=== PATIENT | female | born 2000 | race Caucasian/White ===

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

== ENCOUNTER → 2023-08-09 16:25 | Outpatient (CLI) | payer OTHER, SELFPAY ==
[2023-08-11 11:13] LABS: Progesterone 20.1 ng/mL (.)
== END ==
PROVIDERS: PCP Obstetrics & Gynecology; Visit Provider Obstetrics & Gynecology
DX: N92.6 Irregular menstruation, unspecified (principal); Z32.00 Encounter for pregnancy test, result unknown
CPT/HCPCS: 36415; 84144; 84702

== ENCOUNTER → 2023-08-14 12:02 | Outpatient (CLI) | payer OTHER, SELFPAY ==
[2023-08-14 12:51] LABS: Basophils % 0.2 % (0.1-2.0); Eosinophils # 0.1 K/mm3 (0.0-0.4); Eosinophils % 0.7 % (0.1-12.0); Hematocrit 37.5 % (37.0-47.0); Lymphocytes # 1.4 K/mm3 (0.7-4.5); Lymphocytes % 12.5 % (10-50); Mean Corpuscular HGB Conc 34.5 g/dL (31.8-35.4); Mean Corpuscular Hemoglobin 30.7 pg (27.0-31.2); Mean Platelet Volume 8.5 fl (7.4-10.4); Monocytes # 0.4 K/mm3 (0.1-1.0); Neutrophils # 9.2 K/mm3 (1.8-7.8); Neutrophils % 82.6 % (37.0-80.0); Platelet Count 209 K/mm3 (142-424); Red Blood Count 4.22 M/mm3 (4.20-5.40); Red Cell Distribution Width 13.1 % (11.5-17.5); White Blood Count 11.1 K/mm3 (4.8-10.8)
[2023-08-15 11:18] LABS: Rapid Plasma Reagin Ab Titer Non Reactive titer (NonRea<1:1)
[2023-08-18 21:36] LABS: HIV Screen 4th Generation wRfx Non Reactive; Hepatitis B Surface Antigen Negative; Hepatitis C Antibody Non Reactive
== END ==
PROVIDERS: Visit Provider Obstetrics & Gynecology
DX: Z34.91 Encounter for supervision of normal pregnancy, unspecified, first trimester (principal); Z3A.08 8 weeks gestation of pregnancy
CPT/HCPCS: 36415; 85025; 86593; 86703; 86762; 86850; 87086; 87340; 87380; G0432

== ENCOUNTER → 2023-09-12 16:42 | Outpatient (CLI) | payer OTHER, SELFPAY ==
[2023-09-12 16:39] LABS: Hemoglobin A1C 4.6 % (4.0-6.0)
== END ==
LOC: LAB.DROPOF 16:43
PROVIDERS: PCP Obstetrics & Gynecology; Visit Provider Nurse Practitioner Psychiatric/Mental Health
DX: Z79.899 Other long term (current) drug therapy (principal)
CPT/HCPCS: 83036

== ENCOUNTER 2023-09-26 10:36 | Outpatient (CLI) | payer OTHER, SELFPAY ==
[2023-09-26 10:58] LABS: Basophils % 0.2 % (0.1-2.0); Eosinophils # 0.1 K/mm3 (0.0-0.4); Eosinophils % 1.1 % (0.1-12.0); Hematocrit 37.5 % (37.0-47.0); Lymphocytes # 1.5 K/mm3 (0.7-4.5); Lymphocytes % 13.5 % (10-50); Mean Corpuscular HGB Conc 34.5 g/dL (31.8-35.4); Mean Corpuscular Hemoglobin 30.7 pg (27.0-31.2); Mean Corpuscular Volume 88.8 fl (81-99); Mean Platelet Volume 8.7 fl (7.4-10.4); Monocytes # 0.5 K/mm3 (0.1-1.0); Monocytes % 4.3 % (1.7-9.3); Neutrophils # 8.8 K/mm3 (1.8-7.8); Neutrophils % 80.9 % (37.0-80.0); Platelet Count 229 K/mm3 (142-424); Red Blood Count 4.23 M/mm3 (4.20-5.40); Red Cell Distribution Width 13.6 % (11.5-17.5); White Blood Count 10.9 K/mm3 (4.8-10.8)
[2023-09-26 11:21] LABS: Chloride 105 mmol/L (98-107); Sodium 136 mmol/L (136-145)
[2023-09-26 11:23] LABS: Alanine Aminotransferase 24 U/L (12-78); Aspartate Amino Transferase 22 U/L (14-36); Blood Urea Nitrogen 9 mg/dl (7-17); Estimated Glomerular Filt Rate 126 ml/min (>60); GFR (African American) 153 ML/MIN (>60)
[2023-09-26 11:24] LABS: Albumin Level 3.8 g/dl (3.5-5.0); Albumin/Globulin Ratio 1.5 (1.1-1.8); Alkaline Phosphatase 37 U/L (38-126); Bilirubin,Total 0.5 mg/dl (0.2-1.3); Calcium 8.6 mg/dl (8.4-10.2); Carbon Dioxide 25 mmol/L (22.0-30.0); Globulin 2.5 g/dL (1.3-3.2); Glucose 76 mg/dl (74-100); Total Protein,Serum 6.3 g/dl (6.3-8.2)
== END 2023-09-26 23:59 ==
LOC: LAB 10:37
PROVIDERS: Visit Provider Obstetrics & Gynecology
DX: Z34.91 Encounter for supervision of normal pregnancy, unspecified, first trimester (principal); Z3A.14 14 weeks gestation of pregnancy
CPT/HCPCS: 36415; 80053; 85025

== ENCOUNTER 2023-09-28 13:53 | Outpatient (CLI) | payer OTHER, SELFPAY ==
[2023-09-28 14:13] LABS: Total Volume,Urine 1100 mL (600-1600)
[2023-09-28 14:19] LABS: Total Protein 24 Hour,Urine 121 mg/24 hr (40-90)
== END 2023-09-28 23:59 ==
LOC: LAB.DROPOF 13:54
PROVIDERS: Visit Provider Obstetrics & Gynecology
DX: Z34.92 Encounter for supervision of normal pregnancy, unspecified, second trimester (principal); Z3A.14 14 weeks gestation of pregnancy
CPT/HCPCS: 84155

== ENCOUNTER 2023-11-06 19:17 | Emergency (ER) | payer OTHER, SELFPAY ==
[2023-11-06 19:21] VITALS: BP 145/85; PULSE 103; RESP 18; TEMP 36.7; O2SAT 96; BMI 25.2
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
[2023-11-06 19:31] VITALS: BP 133/85; PULSE 110; O2SAT 97
--- NOTE | 2023-11-06 20:36 | PC.NURSE ---
MD on phone with OB
[2023-11-06 21:21] VITALS: BP 138/79; PULSE 75; RESP 15; TEMP 36.8; O2SAT 99
[2023-11-06] MEDS: ACETAMINOPHEN 500MG TAB 1000 MG PO (21:26)
== END 2023-11-06 21:23 | disposition home or self-care (01) ==
PROVIDERS: Emergency Provider Emergency Medicine
DX: O9A.212 Injury, poisoning and certain other consequences of external causes complicating pregnancy, second trimester (principal); Z3A.00 Weeks of gestation of pregnancy not specified; O10.012 Pre-existing essential hypertension complicating pregnancy, second trimester
CPT/HCPCS: 99284

== ENCOUNTER 2023-11-07 12:43 | Outpatient (CLI) | payer OTHER, SELFPAY ==
--- NOTE | 2023-11-07 12:44 | US_ITS ---
PROCEDURE: US OB /MATERNAL DETAIL CLINICAL INDICATION: 20 wk+ Anatomy Scan-Complete COMPARISON: No exams were available for comparison FINDINGS: Transabdominal sonographic images of the pelvis were obtained. From her established due date she is 20 weeks 2 days. Single viable intrauterine gestation. Breech position. Placenta: Posteriorplacenta grade 1. There is an average amount of fluid. The cervix appears satisfactory. Closed and measuring 2.8 cm in length. Complete survey performed and was unremarkable on the submitted images as in PACS. No discrete anomalies identified on survey imaging by technologist. Active fetus. Three-vessel cord with satisfactory umbilical cord insertion. 4- chamber heart noted. Situs, aortic arch, LVOT, RVOT, three-vessel view appear normal. Small echogenic focus in left ventricle. Survey of brain & ventricles Unremarkable. Cerebellum, thalamus, choroid plexus, cisterna magna appear normal. Face and neck survey unremarkable. Profile, nasion, lips and nose appeared normal. Diaphragm and chest views unremarkable. Abdomen: Both kidneys noted and unremarkable. Stomach and bladder noted and satisfactory. Spine: Survey of the spine satisfactory with no anomalies identified nor imaged. Cervical, thoracic, lower spine appear normal. Both arms and legs noted. Amniotic Fluid: Adequate. Measurements: Average ultrasound age 20weeks 0 days. Estimated due date by ultrasound age 0703/26/2024. Estimated weight 331g BPD = 19weeks 3days HC = 20weeks 2days AC = 20weeks 3days FL = 19weeks 6days Growth Percentile= 34 Heart Rate = 150bpm Cerebellum = 19weeks 4days Humerus = 20weeks 1day HC/AC is 1.18 FL/BPD is 0.72 FL/AC is 0.21 IMPRESSION: 1. Viable fetus in the breech presentation with a posterior placenta grade 1. 2. The fluid is within normal limits. 3. Anatomical scan appears normal. 4. There is a small echogenic focus within the left ventricle. 5. biometry is consistent with the dates. Dictated by: Billy Bowens MD 11/07/2023 15:59 Billy Bowens MD in [facility] 11/07/2023 15:59
== END 2023-11-07 23:59 ==
LOC: RAD 12:44
PROVIDERS: Visit Provider Obstetrics & Gynecology
DX: O26.892 Other specified pregnancy related conditions, second trimester (principal); O10.912 Unspecified pre-existing hypertension complicating pregnancy, second trimester; Z36.3 Encounter for antenatal screening for malformations; Z3A.20 20 weeks gestation of pregnancy
CPT/HCPCS: 76811

== ENCOUNTER 2023-11-26 14:50 | Outpatient (CLI) | payer OTHER, SELFPAY | END 2023-11-26 23:59 | LOC: RT 14:51 | PROVIDERS: Visit Provider Nurse Practitioner Family | DX: R06.09 Other forms of dyspnea (principal); R00.0 Tachycardia, unspecified; R07.9 Chest pain, unspecified; Z3A.23 23 weeks gestation of pregnancy; F41.9 Anxiety disorder, unspecified; O26.892 Other specified pregnancy related conditions, second trimester | CPT/HCPCS: 93270 ==

== ENCOUNTER 2023-12-09 07:49 | Outpatient (CLI) | payer OTHER, SELFPAY ==
--- NOTE | 2023-12-09 08:00 | CA_ITS ---
APPROVED REPORT EXAM: Comprehensive 2D, Doppler, and color-flow Echocardiogram [employer]: Delphine Knight, RCS, RVS Ht: 5 ft 2 in Wt: 167lbs BSA: 1.77 BP: 135/85 mmHg Indications: 23weeks , ex-smoker, SOB, CP, Tachycardia 2D Dimensions IVSd 0.70 cm LVEF (Visual) 49.90 % PWd 0.82 cm LA Volume 46.20 mL LVDd 4.82 cm LA Volume Index 25.50 mL/m2 (M/F) 16-34 LVDs 3.60 cm Left Atrium 3.17 cm M-Mode Dimensions RVDd 2.72 cm (0.9-2.6) LA Diam 2.64 cm (1.9-4.0) LVDd 4.34 cm (3.5-5.7) LVDs 3.19 cm (3.5-5.7) IVSd 0.84 cm (0.6-1.1) PWd 0.75 cm (0.6-1.1) EF (Teich) 52.20% EPSs 0.47 cm FS 26.50% EDV (Teich) 84.90 mL TAPSE 2.25 (<1.7) ESV (Teich) 40.60 mL LV Diastology E Decel Time 73 (160-240 msec) E/A Ratio 2.11 MED A' 4.60 cm/s LAT A' 4.70 cm/s Aortic Valve PAOLO Index 1.59 cm2/m2 AoV Peak Chandrakant. 114.0 (50-130 cm/s) AO Peak GR. 5.20 mmHg AO Mean GR. 2.60 (<5 mmHg) AO VTI 20.4 (18-25 cm) PAOLO (VTI) 2.88 (2.5-4.5 cm2) Mitral Valve MV A Velocity 62.0 (40-130 cm/s) E/A Ratio 2.11 Pulmonary Valve PV Peak Velocity 68.0 (50-150 cm/s) Tricuspid Valve TR P. Velocity 212.00 cm/s RAP Estimate 10.00 mmHg RVSP 27.90 mmHg Left Ventricle The left ventricle is normal size. The left ventricular systolic function is normal. The left ventricular ejection fraction is within the normal range. There is normal left ventricular wall thickness. There is normal LV segmental wall motion. The left ventricular diastolic function is normal. LVEF is 55%. Right Ventricle The right ventricle is normal size. The right ventricular systolic function is normal. Atria The left atrium size is normal. The right atrium size is normal. There is no Doppler evidence of interatrial shunt. Aortic Valve The aortic valve opens well. There is no aortic valvular stenosis. No aortic regurgitation is present. Mitral Valve The mitral valve is normal in structure. No evidence of mitral valve stenosis. Mild mitral regurgitation. Tricuspid Valve The tricuspid valve leaflets are thin and pliable. Mild tricuspid regurgitation. RVSP is 20-25 mmHg. Pulmonic Valve The pulmonary valve is normal in structure. Trace pulmonic regurgitation. Great Vessels The aortic root is normal in size. The ascending aorta is not well-visualized. IVC is normal in size and collapses >50% with inspiration. Pericardium There is no pericardial effusion. Other Information Study Quality: Adequate Conclusion Normal biventricular systolic function. Mild MR, mild TR. Electronically signed by : Nicol Allen MD 12/11/2023 11:41:56
== END 2023-12-09 23:59 ==
LOC: RT 07:52
PROVIDERS: Visit Provider Nurse Practitioner Family
DX: R06.09 Other forms of dyspnea (principal); R00.0 Tachycardia, unspecified; R07.9 Chest pain, unspecified; O26.892 Other specified pregnancy related conditions, second trimester; Z3A.23 23 weeks gestation of pregnancy; F41.9 Anxiety disorder, unspecified
CPT/HCPCS: 93306

== ENCOUNTER 2023-12-24 08:58 | Outpatient (CLI) | payer OTHER, SELFPAY ==
[2023-12-24 09:25] LABS: Basophils # 0.1 K/mm3 (0-0.2); Basophils % 0.4 % (0.1-2.0); Eosinophils # 0.2 K/mm3 (0.0-0.4); Eosinophils % 1.4 % (0.1-12.0); Hematocrit 38.5 % (37.0-47.0); Hemoglobin 12.7 g/dL (12.2-16.2); Lymphocytes # 1.6 K/mm3 (0.7-4.5); Lymphocytes % 10.8 % (10-50); Mean Corpuscular Volume 93.9 fl (81-99); Monocytes # 0.6 K/mm3 (0.1-1.0); Monocytes % 4.3 % (1.7-9.3); Neutrophils # 12.2 K/mm3 (1.8-7.8); Neutrophils % 83.2 % (37.0-80.0); Platelet Count 219 K/mm3 (142-424); Red Cell Distribution Width 13.8 % (11.5-17.5); White Blood Count 14.6 K/mm3 (4.8-10.8)
[2023-12-24 10:09] LABS: Chloride 107 mmol/L (98-107)
[2023-12-24 10:10] LABS: Potassium 3.9 mmoL/L (3.5-5.1); Sodium 134 mmol/L (136-145)
[2023-12-24 10:12] LABS: Alanine Aminotransferase 26 U/L (12-78); Alkaline Phosphatase 85 U/L (38-126); Anion Gap 6.9 mEq/L (5-15); Aspartate Amino Transferase 32 U/L (14-36); Bilirubin,Direct 0.2 mg/dl (0.0-0.4); Bilirubin,Indirect 0.3 mg/dL (0.0-0.9); Bilirubin,Total 0.5 mg/dl (0.2-1.3); Bilirubin,Unconjugated 0.3 mg/dL (0.0-1.1); Blood Urea Nitrogen 6 mg/dl (7-17); Carbon Dioxide 24 mmol/L (22.0-30.0); Cholesterol 258 mg/dl (140-200); Estimated Glomerular Filt Rate 126 ml/min (>60); GFR (African American) 153 ML/MIN (>60); Triglycerides 214 mg/dl (30-150); VLDL Cholesterol 43 mg/dL (0-40)
[2023-12-24 10:13] LABS: Albumin Level 3.4 g/dl (3.5-5.0); Calcium 9.1 mg/dl (8.4-10.2); Chol/HDL Ratio 3.4 (1-3.5); Glucose 82 mg/dl (74-100); HDL Cholesterol 76 mg/dl (40-60); Magnesium 1.5 mg/dl (1.6-2.3); Total Protein,Serum 5.9 g/dl (6.3-8.2)
[2023-12-24 10:19] LABS: C-Reactive Protein 7.9 mg/L (0-4)
[2023-12-24 10:24] LABS: Direct LDL Cholesterol 126.71 mg/dL (100-129)
[2023-12-24 10:31] LABS: Free T4 (Free Thyroxine) 0.71 ng/dl (0.78-2.19)
[2023-12-24 10:46] LABS: Thyroid Stimulating Hormone 0.48 uIU/mL (0.465-4.68)
[2023-12-24 11:18] LABS: Erythrocyte Sedimentation Rate 33 mm/hr (0-20)
== END 2023-12-24 23:59 | disposition home or self-care (01) ==
LOC: LAB 08:59
PROVIDERS: Visit Provider Nurse Practitioner
DX: O99.340 Other mental disorders complicating pregnancy, unspecified trimester (principal); F41.9 Anxiety disorder, unspecified; R06.09 Other forms of dyspnea; R00.0 Tachycardia, unspecified; R07.9 Chest pain, unspecified; Z3A.23 23 weeks gestation of pregnancy
CPT/HCPCS: 36415; 80048; 80061; 80076; 83735; 84439; 84443; 85025; 85651; 86140

== ENCOUNTER 2023-12-31 08:16 | Outpatient (CLI) | payer OTHER, SELFPAY ==
[2023-12-31 08:47] LABS: Basophils # 0.1 K/mm3 (0-0.2); Basophils % 0.3 % (0.1-2.0); Eosinophils # 0.1 K/mm3 (0.0-0.4); Eosinophils % 0.5 % (0.1-12.0); Hematocrit 35.6 % (37.0-47.0); Lymphocytes # 1.9 K/mm3 (0.7-4.5); Lymphocytes % 11.3 % (10-50); Mean Corpuscular HGB Conc 33.8 g/dL (31.8-35.4); Mean Corpuscular Hemoglobin 31.5 pg (27.0-31.2); Mean Corpuscular Volume 93.4 fl (81-99); Mean Platelet Volume 8.9 fl (7.4-10.4); Monocytes # 0.7 K/mm3 (0.1-1.0); Neutrophils # 13.8 K/mm3 (1.8-7.8); Neutrophils % 83.9 % (37.0-80.0); Platelet Count 224 K/mm3 (142-424); Red Blood Count 3.81 M/mm3 (4.20-5.40); Red Cell Distribution Width 13.3 % (11.5-17.5); White Blood Count 16.4 K/mm3 (4.8-10.8)
[2023-12-31 09:09] LABS: MANUAL DIFFERENTIAL MANUAL DIFFERENTIAL (MANUAL DIFF)
[2023-12-31 09:21] LABS: Glucose,Fasting 83 mg/dl (74-100)
[2023-12-31 10:44] LABS: Eosinophils % 1 % (0-3); Lymphocytes % 11 % (10-50); Monocytes % 2 % (2-9); Neutrophils % 84 % (42-76); Total Cells Counted 100
[2023-12-31 10:45] LABS: Platelet Estimate Normal; RBC Morphology Normal
[2023-12-31 12:34] LABS: Glucose 1 Hour 123 mg/dL (74-100)
== END 2023-12-31 23:59 ==
LOC: LAB 08:17
PROVIDERS: Visit Provider Obstetrics & Gynecology
DX: O26.892 Other specified pregnancy related conditions, second trimester (principal); Z3A.23 23 weeks gestation of pregnancy
CPT/HCPCS: 36415; 82951; 85007; 85025

== ENCOUNTER 2024-01-13 13:43 | Outpatient (CLI) | payer SELFPAY ==
[2024-01-13 14:18] LABS: Basophils % 0.2 % (0.1-2.0); Eosinophils # 0.1 K/mm3 (0.0-0.4); Eosinophils % 0.7 % (0.1-12.0); Hematocrit 34.9 % (37.0-47.0); Hemoglobin 11.5 g/dL (12.2-16.2); Lymphocytes # 1.8 K/mm3 (0.7-4.5); Lymphocytes % 12.2 % (10-50); Mean Corpuscular HGB Conc 33.1 g/dL (31.8-35.4); Mean Corpuscular Hemoglobin 30.8 pg (27.0-31.2); Mean Platelet Volume 9.3 fl (7.4-10.4); Monocytes # 0.6 K/mm3 (0.1-1.0); Neutrophils # 12.1 K/mm3 (1.8-7.8); Neutrophils % 82.9 % (37.0-80.0); Platelet Count 215 K/mm3 (142-424); Red Blood Count 3.75 M/mm3 (4.20-5.40); Red Cell Distribution Width 13.5 % (11.5-17.5); White Blood Count 14.6 K/mm3 (4.8-10.8)
== END 2024-01-13 23:59 | disposition home or self-care (01) ==
PROVIDERS: Visit Provider Obstetrics & Gynecology
DX: O10.913 Unspecified pre-existing hypertension complicating pregnancy, third trimester (principal); O26.893 Other specified pregnancy related conditions, third trimester; Z3A.29 29 weeks gestation of pregnancy
CPT/HCPCS: 36415; 85025

== ENCOUNTER 2024-02-16 11:58 | Outpatient (CLI) | payer BC, SELFPAY ==
[2024-02-16 12:37] LABS: Basophils % 0.3 % (0.1-2.0); Eosinophils # 0.1 K/mm3 (0.0-0.4); Eosinophils % 0.5 % (0.1-12.0); Hematocrit 37.1 % (37.0-47.0); Hemoglobin 12.2 g/dL (12.2-16.2); Lymphocytes # 1.5 K/mm3 (0.7-4.5); Lymphocytes % 11.5 % (10-50); Mean Corpuscular HGB Conc 32.8 g/dL (31.8-35.4); Mean Corpuscular Hemoglobin 29.6 pg (27.0-31.2); Mean Corpuscular Volume 90.4 fl (81-99); Mean Platelet Volume 9.3 fl (7.4-10.4); Monocytes # 0.5 K/mm3 (0.1-1.0); Monocytes % 3.6 % (1.7-9.3); Neutrophils # 11.1 K/mm3 (1.8-7.8); Neutrophils % 84.2 % (37.0-80.0); Platelet Count 243 K/mm3 (142-424); Red Blood Count 4.11 M/mm3 (4.20-5.40); Red Cell Distribution Width 13.8 % (11.5-17.5); White Blood Count 13.2 K/mm3 (4.8-10.8)
[2024-02-16 12:48] LABS: Magnesium 1.2 mg/dl (1.6-2.3)
[2024-02-16 13:03] LABS: Free T4 (Free Thyroxine) 0.75 ng/dl (0.78-2.19)
[2024-02-16 13:18] LABS: Thyroid Stimulating Hormone 0.09 uIU/mL (0.465-4.68)
== END 2024-02-16 23:59 | disposition home or self-care (01) ==
LOC: LAB 11:59
PROVIDERS: Visit Provider Obstetrics & Gynecology
DX: O10.913 Unspecified pre-existing hypertension complicating pregnancy, third trimester (principal); O99.343 Other mental disorders complicating pregnancy, third trimester; F41.9 Anxiety disorder, unspecified; E03.8 Other specified hypothyroidism; R79.0 Abnormal level of blood mineral; R07.9 Chest pain, unspecified; D72.829 Elevated white blood cell count, unspecified; Z3A.35 35 weeks gestation of pregnancy
CPT/HCPCS: 36415; 83735; 84439; 84443; 85025

== ENCOUNTER 2024-02-16 13:10 | Emergency (ER) | payer BC, SELFPAY ==
[2024-02-16 13:13] VITALS: BP 120/78; PULSE 108; RESP 13; TEMP 36.6; O2SAT 96; BMI 31.1
--- NOTE | 2024-02-16 13:44 | ECG_ITS ---
APPROVED REPORT Exam: Resting ECG HR:99 bpm ECG Measurements Heart Rate 99 AXES DC 196 P 20 QRSd 77 QRS 22 QT 322 T 24 QTc 378 Conclusion SINUS RHYTHM NORMAL ECG Electronically signed by : FLACA IBRAHIM, 02/17/2024 03:47:19
[2024-02-16 13:45] LABS: Basophils # 0.1 K/mm3 (0-0.2); Basophils % 0.4 % (0.1-2.0); Eosinophils # 0.1 K/mm3 (0.0-0.4); Eosinophils % 0.7 % (0.1-12.0); Hematocrit 36.5 % (37.0-47.0); Hemoglobin 12.2 g/dL (12.2-16.2); Lymphocytes # 1.7 K/mm3 (0.7-4.5); Lymphocytes % 11.8 % (10-50); Mean Corpuscular HGB Conc 33.3 g/dL (31.8-35.4); Mean Corpuscular Hemoglobin 29.4 pg (27.0-31.2); Mean Corpuscular Volume 88.3 fl (81-99); Mean Platelet Volume 9.4 fl (7.4-10.4); Monocytes # 0.6 K/mm3 (0.1-1.0); Monocytes % 4.5 % (1.7-9.3); Neutrophils # 11.8 K/mm3 (1.8-7.8); Neutrophils % 82.6 % (37.0-80.0); Platelet Count 241 K/mm3 (142-424); Red Blood Count 4.14 M/mm3 (4.20-5.40); Red Cell Distribution Width 13.8 % (11.5-17.5); White Blood Count 14.3 K/mm3 (4.8-10.8)
[2024-02-16 13:50] LABS: Chloride 107 mmol/L (98-107); Potassium 3.9 mmoL/L (3.5-5.1); Sodium 133 mmol/L (136-145)
[2024-02-16 13:53] LABS: Alanine Aminotransferase 29 U/L (12-78); Albumin Level 3.4 g/dl (3.5-5.0); Alkaline Phosphatase 163 U/L (38-126); Anion Gap 9.9 mEq/L (5-15); Aspartate Amino Transferase 27 U/L (14-36); Bilirubin,Total 0.3 mg/dl (0.2-1.3); Blood Urea Nitrogen 5 mg/dl (7-17); Carbon Dioxide 20 mmol/L (22.0-30.0); Creatinine Clearance Estimated 181 mL/min (50-200); Estimated Glomerular Filt Rate 126 ml/min (>60); GFR (African American) 153 ML/MIN (>60); Globulin 3.3 g/dL (1.3-3.2); Total Protein,Serum 6.7 g/dl (6.3-8.2)
[2024-02-16 13:54] LABS: Calcium 9.1 mg/dl (8.4-10.2); Glucose 98 mg/dl (74-100)
--- NOTE | 2024-02-16 14:04 | ED_ITS ---
<Statement entered by Cheko Mejia MD - 02/23/24 09:25> I was consulted by the CAROLE, and we discussed the complexity of the problems being addressed. I approved the treatment and management plan for this patient's care in the emergency department, thus performing a substantive portion of the medical decision making. Cheko Mejia MD, CIARA, FACEP Discharge Plan Disposition Patient Disposition: Home, Self-Care Condition: Good Prescriptions Prescriptions: No Action PNV cmb#95-ferrous fumarate-FA [] 28 mg iron- 800 mcg tablet PO sertraline [Zoloft] 50 mg tablet 50 mg PO DAILY Qty: 30 1RF Referrals Follow up/Referrals: Manjit Platt DO [Staff Physician] - See instructions Molly Olmos APRN [Nurse Practitioner] - See instructions Provider,MD Dawn [Primary Care Provider] - See instructions Clinical Impressions Clinical Impression: Paresthesia of right upper extremity, Generalized anxiety disorder Discharge ED Provider: Pravin Rush General Adult HPI General Chief complaint: PAIN Stated complaint: intermitant numbness on right side of body Time Seen by Provider: 02/16/24 14:02 Mode of Arrival: Ambulatory Source of Information: Patient Limitations: No Limitations Description of Symptoms (Recalled from ER Triage Doc. by RN): pt presents to ED with c/o numbness in right hand. pt reports shortness of air and chest pain intermittently. pt is 34 weeks and does follow with dr ryder History of Present Illness HPI narrative: Patient presents for evaluation of numbness to her right hand, shortness of air and chest pain. Patient is 34 weeks and reports intermittent paresthesia to her right hand however she states that it migrates to other parts of her body. Patient also reports that she has bilateral lower extremity swelling and that her right foot is bigger than her left. Patient also reports that she feels short of breath and has intermittent chest pain that does not radiate and located substernally. Patient had similar symptoms in November and had an echo that was read as normal by cardiology. She did have mild tricuspid and mitral valve regurgitation. 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 Patient currently denies chest pain shortness of breath fever chills hemoptysis hematochezia melena nausea vomiting diarrhea at the moment. Related Data Home Medications Medication Instructions Recorded Confirmed vit no.95-ferrous tab PO 08/14/23 02/02/24 fumarate 28 mg-folic acid 800 mcg tablet () Previous Rx's Medication Instructions Recorded sertraline 50 mg tablet (Zoloft) 50 mg PO DAILY #30 tabs 12/09/23 Allergies Allergy/AdvReac Type Severity Reaction Status Date / Time No Known Allergies Allergy Verified 02/02/24 10:36 [facility] Disclaimer: The information contained in this section may have been updated after the patient was seen, as this information can be updated by other users. Medical History (Updated 02/16/24 @ 15:57 by PING Herzog) Leukocytosis Low magnesium level Anxiety during , antepartum Chronic hypertension affecting Generalized anxiety disorder Surgical History [place] teeth extracted Family History Other No significant family history Social History Smoking Status: Former smoker second hand exposure: No alcohol intake: former counseling given: No substance use type: marijuana counseling given: No current occupational status: employed and other Travel in the last 8 weeks: None adopted: No caregiver/support person: No foster care: No household members: significant other housing: apartment lives independently: Yes marital status: single number of children: 0 education level: high school current occupation: at [employer] Recent Travel: No sexually active: Yes caffeine: Yes physical activity: none troy/pentecostalism: None special troy needs: No working smoke detector in home: Yes fire extinguisher in home: No carbon monox detector in home: No firearms in home: No do you feel safe at home: Yes victim of physical abuse: No victim of emotional abuse: Yes victim of sexual abuse: No would you like helpful sources: No ROS Obtained: Yes Systems reviewed as appropriate & no additional complaints except as documented Physical Exam General General appearance: alert and in no apparent distress Neck Neck exam: Absent tenderness Respiratory Respiratory exam: Present normal lung sounds bilaterally; Absent respiratory distress, wheezes or stridor Cardiovascular Cardiovascular exam: Present regular rate, normal rhythm and normal heart sounds Abdominal Exam Abdominal exam: Present soft (But gravid) and normal bowel sounds; Absent tenderness, guarding or rebound Extremities Exam Extremities exam: Present normal inspection, full ROM, edema (Nonpitting on the right 1+ pitting on the left however right lower extremity appears to be larger than the left) and other (I am unable to provoke symptoms with Tinel's or Phalen's patient has full range of motion is neurovascularly intact distally in the bilateral upper extremities) Back Exam Back exam: Present normal inspection and full ROM; Absent tenderness Neurological Exam Neurological exam: Present alert, oriented X3 and CN II-XII intact Psychiatric Psychiatric exam: Present normal mood and anxious Skin Skin exam: Present warm, dry and normal color Medical Decision Making Medical Records Medical records reviewed: Yes I reviewed the patient's medical records. Souleymane Inquiry Pt receiving controlled substance: No Vital Signs: 02/16/24 13:13 02/16/24 16:00 02/16/24 16:30 Temperature 97.9 F Temperature Source Oral Pulse Rate 95 H 100 H Pulse Rate [Left Radial] 108 H Respiratory Rate 13 Blood Pressure 135/88 145/93 H Blood Pressure [Right Arm] 120/78 Blood Pressure Mean [Right Arm] 92 02 Sat by Pulse Oximetry 96 97 97 Oxygen Delivery Method Room Air Room Air Room Air Lab Data Lab results reviewed: Yes I reviewed the patient's lab results. Lab Results 02/16/24 13:38: WBC 14.3 H, RBC 4.14 L, Hgb 12.2, Hct 36.5 L, MCV 88.3, MCH 29.4, MCHC 33.3, RDW 13.8, Plt Count 241, MPV 9.4, Neut % (Auto) 82.6 H, Lymph % (Auto) 11.8, [place] % (Auto) 4.5, Eos % (Auto) 0.7, Baso % (Auto) 0.4, Neut # (Auto) 11.8 H, Lymph # (Auto) 1.7, [place] # (Auto) 0.6, Eos # (Auto) 0.1, Baso # (Auto) 0.1, Sodium 133 L, Potassium 3.9, Chloride 107, Carbon Dioxide 20 L, Anion Gap 9.9, BUN 5 L, Creatinine 0.60, Estimated Creat Clear 181, Estimated GFR 126, Est GFR ( Amer) 153, Glucose 98, Calcium 9.1, Magnesium 1.3 L, Total Bilirubin 0.3, AST 27, ALT 29, Alkaline Phosphatase 163 H, Troponin I < 0.01, Total Protein 6.7, Albumin 3.4 L, Globulin 3.3 H, Albumin/Globulin Ratio 1.0 L 02/16/24 14:53: D-Dimer 0.60 H 02/16/24 14:57: Urine Color Yellow, Urine Appearance Clear, Urine pH 7.5, Ur Specific [place] 1.015, Urine Protein Negative, Urine Glucose (UA) Negative, Urine Ketones Negative, Urine Blood Negative, Urine Nitrate Negative, Urine Bilirubin Negative, Urine Urobilinogen 0.2, Ur Leukocyte Esterase Negative, Urine RBC None, Urine WBC Occasional, Ur Squamous Epith Cells Occasional, Urine Bacteria Trace, Urine Mucus Trace 02/16/24 13:38 02/16/24 13:38 Orders (Tests/Meds): ED MEDICATIONS Discontinued Medications Generic Name Dose Route Start Last Admin Trade Name Freq PRN Reason Stop Dose Admin Acetaminophen 1,000 mg 02/16/24 14:34 02/16/24 14:57 Acetaminophen 1,000mg/100ml Vial IV 02/16/24 14:35 1,000 mg ONCE ONE Administration Diazepam 5 mg 02/16/24 14:36 02/16/24 14:41 Diazepam 5mg Tablet PO 02/16/24 14:37 Not Given ONCE ONE Hydroxyzine Pamoate 25 mg 02/16/24 15:48 02/16/24 16:12 Hydroxyzine Pamoate 25mg Capsule PO 02/16/24 15:49 25 mg ONCE ONE Administration Magnesium Sulfate 2 gm in 50 mls @ 50 mls/hr 02/16/24 15:18 02/16/24 15:26 Magnesium Sulfate 2gm/50ml Premix IV 02/16/24 16:17 50 mls/hr ONCE ONE Administration Prednisone 40 mg 02/16/24 14:34 02/16/24 14:57 Prednisone 20mg Tab PO 02/16/24 14:35 40 mg ONCE ONE Administration ORDERS Category Date Time Status Chest XR -- portable [XR chest portable] Stat Exams 02/16/24 14:34 Taken POCUS Point of Care (ER Only) Stat Exams 02/16/24 16:30 Ordered Complete Blood Count Auto Diff Stat Lab 02/16/24 13:38 Completed Comprehensive Metabolic Panel Stat Lab 02/16/24 13:38 Completed D-Dimer Stat Lab 02/16/24 14:53 Completed Magnesium Stat Lab 02/16/24 13:38 Completed Troponin I Q3H Lab 02/16/24 16:40 Completed Troponin I Q3H Lab 02/16/24 19:45 Ordered Troponin I Stat Lab 02/16/24 13:38 Completed UA [Urinalysis and Microscopic] Stat Lab 02/16/24 14:57 Completed HEART Score History (anamnesis): Slightly suspicious ECG: Normal Age: <45 years Risk factors: 1-2 risk factors Troponin: </= normal limit HEART Score: 1 Medical Decision Narrative: In summary patient is a 22-year-old female who presents to the emergency department for evaluation of paresthesia of the right upper extremity, dyspnea and chest pain, bilateral lower extremity swelling. Patient is dynamically stable but tachycardic at 108 upon arrival, afebrile. Physical exam is remarkable for normal breath sounds, no chest pain on palpation, negative paresthesias currently and unable to provoke them with Tinel's or Phalen's, all 4 extremities are intact grossly to exam with full range of motion and neurovascularly intact, patient has +1 pitting edema of the left lower extremity none in the right however the right is larger than the left.. Differential diagnosis includes PE, ACS, repetitive use injury, carpal tunnel syndrome, normal sequela of etc. Initial workup will be conducted with hematologic labs EKG plain film chest x-ray urinalysis. Initial interventions include acetaminophen and prednisone. Initial workup reviewed by me shows an elevated white count with a left shift however remainder of her hematologic labs are nonactionable. My informal review of her plain film chest x-ray shows no acute processes. Upon repeat evaluation had no recurrence of symptoms and reports moderate improvement. Given this patient is appropriate for discharge with referral to orthopedics and behavioral health the former for her possible carpal tunnel and the latter for second opinion on anxiety management Critical Care Critical Care Time Critical Care Time: No
[2024-02-16 14:05] LABS: Troponin I < 0.01 ng/ml (0.00-0.034)
--- NOTE | 2024-02-16 14:34 | XR_ITS ---
FINAL REPORT CLINICAL HISTORY: Chest pain, shortness of breath COMPARISON: None FINDINGS: A single portable view of the chest was obtained. The heart size and pulmonary vascularity are within normal limits. The mediastinum is within normal limits. No acute pulmonary abnormality is identified. The bony thorax is intact. IMPRESSION: No active cardiopulmonary disease. Reviewed, Interpreted and Dictated by Ryan Jaramillo III, MD Transcribed by Karla Maddox Authenticated and [facility]
[2024-02-16 14:44] LABS: Magnesium 1.3 mg/dl (1.6-2.3)
--- NOTE | 2024-02-16 14:47 | PC.NURSE ---
PT returned to room from RAD
[2024-02-16] MEDS: predniSONE 20MG TAB 40 MG PO (14:57)
[2024-02-16] MEDS: ACETAMINOPHEN 1,000MG/100ML VIAL 1000 MG IV (14:57)
--- NOTE | 2024-02-16 14:58 | PC.NURSE ---
Recollected blue top and sent to LAB
--- NOTE | 2024-02-16 15:01 | PC.NURSE ---
Pt ambulatory to bathroom and back to chair. Urine collected and sent to LAB
[2024-02-16 15:03] LABS: Microscopic, Urine URINE MICROSCOPIC (MICROSCOPIC)
[2024-02-16] MEDS: MAGNESIUM SULFATE IN WATER 2 GM/50 ML PIGGYBACK IV (15:26)
[2024-02-16 15:30] LABS: Appearance,Urine CLEAR (Clear); Bilirubin,Urine Negative (Negative); Blood, Urine Negative (Negative); Color,Urine YELLOW (Yellow); Glucose,Urine (UA) Negative (Negative); Ketones,Urine Negative (Negative); Leukocyte Esterase,Urine Negative (Negative); Nitrate,Urine Negative (Negative); PH,Urine 7.5 (5.0-8.5); Protein,Urine Negative (Negative); Specific Gravity, Urine 1.015 (1.005-1.030); Urobilinogen,Urine 0.2 EU/dl (0.2)
[2024-02-16 16:00] VITALS: BP 135/88; PULSE 95; O2SAT 97
[2024-02-16 16:09] LABS: Bacteria,Urine Trace /lpf; Squamous Epithelial Cell,Urine Occasional #/hpf (0-5); WBC,Urine Occasional #/hpf (0-3)
[2024-02-16 16:10] LABS: Mucus,Urine Trace /lpf
[2024-02-16] MEDS: hydrOXYzine pamoate 25MG CAPSULE 25 MG PO (16:12)
[2024-02-16 16:30] VITALS: BP 145/93; PULSE 100; O2SAT 97
--- NOTE | 2024-02-16 17:13 | PC.NURSE ---
call made to radiology for results on pts chest xray, radio intelligence operator states that scan is locked
[2024-02-16 17:14] LABS: Troponin I < 0.01 ng/ml (0.00-0.034)
[2024-02-16 17:25] VITALS: BP 153/93; PULSE 104; RESP 16; TEMP 36.6; O2SAT 97
== END 2024-02-16 17:26 | disposition home or self-care (01) ==
PROVIDERS: Physician Assistant; Student in an Organized Health Care Education/Training Program; Emergency Provider Emergency Medicine
DX: R07.9 Chest pain, unspecified (principal); R06.02 Shortness of breath; R20.2 Paresthesia of skin; F41.1 Generalized anxiety disorder; E83.42 Hypomagnesemia; E87.1 Hypo-osmolality and hyponatremia
CPT/HCPCS: 71045; 80053; 81001; 83735; 84484; 85025; 85378; 93005; 96365; 96375; 99284; J0131; J3475

== ENCOUNTER 2024-02-24 09:08 | Outpatient (CLI) | payer BC, SELFPAY | END 2024-02-24 23:59 | disposition home or self-care (01) | LOC: LAB.DROPOF 02-25 09:08 | PROVIDERS: PCP Obstetrics & Gynecology; Visit Provider Obstetrics & Gynecology | DX: Z3A.35 35 weeks gestation of pregnancy; O26.893 Other specified pregnancy related conditions, third trimester | CPT/HCPCS: 86403 ==

== ENCOUNTER 2024-02-26 09:30 | Outpatient (CLI) | payer BC, SELFPAY ==
--- NOTE | 2024-02-26 09:31 | US_ITS ---
PROCEDURE: US OB FOLLOW UP CLINICAL INDICATION: OB FU for Low Thryroid in COMPARISON: US US OB /MATERNAL DETAIL from 11/07/2023 FINDINGS: Transabdominal sonographic images of the pelvis were obtained. The following parameters are obtained: From her established due date she is 36weeks 1day Viable fetus in the cephalic presentation with a posterior placenta grade 2. The cervix measures 3.27 cm. heart rate: 142bpm bpm. Estimated weight 2587 grams, 5 lb 11 oz. BPD: 34weeks 2days, 11 percentile HC: 34weeks 6days, 4 percentile AC: 36weeks 1day, 58 percentile FL: 33weeks 5days, 3 percentile HC/AC: 0.97 FL/BPD: 0.77 FL/AC: 0.2 Growth percentile: 24 Amniotic fluid index: 17.27cm, MVP 5.92 cm. No obvious anomalies evident. profile seen, stomach, bladder, kidneys, three-vessel cord, four chamber heart appear normal. IMPRESSION: 1. Viable fetus in the cephalic presentation with a posterior placenta grade 2. 2. Fluid is within normal limits with an amniotic fluid index of 17.27 cm, MVP 5.92 cm. 3. There has been good interval growth with the fetus currently 24th percentile. 4. Limited anatomical scan appears normal. Dictated by: Billy Bowens MD 02/27/2024 08:05 Billy Bowens MD in OV 02/27/2024 08:05
[2024-02-26 10:54] LABS: Basophils % 0.3 % (0.1-2.0); Eosinophils # 0.1 K/mm3 (0.0-0.4); Eosinophils % 0.5 % (0.1-12.0); Hematocrit 36.1 % (37.0-47.0); Hemoglobin 11.9 g/dL (12.2-16.2); Lymphocytes # 1.7 K/mm3 (0.7-4.5); Mean Corpuscular HGB Conc 33.1 g/dL (31.8-35.4); Mean Corpuscular Hemoglobin 29.2 pg (27.0-31.2); Mean Corpuscular Volume 88.4 fl (81-99); Monocytes # 0.7 K/mm3 (0.1-1.0); Neutrophils # 11.4 K/mm3 (1.8-7.8); Neutrophils % 82.3 % (37.0-80.0); Platelet Count 271 K/mm3 (142-424); Red Blood Count 4.08 M/mm3 (4.20-5.40); Red Cell Distribution Width 13.8 % (11.5-17.5); White Blood Count 13.8 K/mm3 (4.8-10.8)
[2024-02-26 10:58] LABS: Creatinine,Urine Random 109 mg/dL (Not Estab.)
[2024-02-26 11:18] LABS: Alanine Aminotransferase 33 U/L (12-78); Alkaline Phosphatase 185 U/L (38-126); Aspartate Amino Transferase 30 U/L (14-36); Bilirubin,Total 0.9 mg/dl (0.2-1.3); Blood Urea Nitrogen 5 mg/dl (7-17); Carbon Dioxide 22 mmol/L (22.0-30.0); Chloride 105 mmol/L (98-107); Estimated Glomerular Filt Rate 106 ml/min (>60); GFR (African American) 128 ML/MIN (>60); Glucose 73 mg/dl (74-100); Potassium 3.5 mmoL/L (3.5-5.1); Uric Acid 4.3 mg/dl (2.5-6.2)
[2024-02-26 11:19] LABS: Albumin Level 3.3 g/dl (3.5-5.0); Albumin/Globulin Ratio 1.2 (1.1-1.8); Anion Gap 13.5 mEq/L (5-15); Globulin 2.7 g/dL (1.3-3.2); Lactate Dehydrogenase 183 U/L (313-618); Magnesium 1.4 mg/dl (1.6-2.3); Sodium 137 mmol/L (136-145)
[2024-02-28 11:22] LABS: Triiodothyronine (T3) Free 2.9
== END 2024-02-26 23:59 | disposition home or self-care (01) ==
PROVIDERS: PCP Obstetrics & Gynecology; Visit Provider Obstetrics & Gynecology
DX: O10.913 Unspecified pre-existing hypertension complicating pregnancy, third trimester (principal); Z3A.36 36 weeks gestation of pregnancy; R79.89 Other specified abnormal findings of blood chemistry
CPT/HCPCS: 36415; 76816; 80050; 80053; 82570; 83615; 83735; 84156; 84443; 84481; 84550; 85025

== ENCOUNTER 2024-02-26 10:39 | Outpatient (CLI) | payer BC, SELFPAY ==
[2024-02-26 10:54] VITALS: BMI 32.3
[2024-02-26 11:21] VITALS: BP 134/89; PULSE 97; RESP 18; TEMP 36.7; O2SAT 98; BMI 32.3
== END 2024-02-26 11:46 | disposition home or self-care (01) ==
LOC: OBOUT 10:41 → OB 10:43
PROVIDERS: Visit Provider Nurse Practitioner Obstetrics & Gynecology
DX: Z3A.36 36 weeks gestation of pregnancy; R11.0 Nausea; O26.853 Spotting complicating pregnancy, third trimester; M54.50 Low back pain, unspecified; O10.013 Pre-existing essential hypertension complicating pregnancy, third trimester
CPT/HCPCS: 59025; G0463

== ENCOUNTER 2024-03-10 12:14 | Outpatient (CLI) | payer BC, SELFPAY | END 2024-03-10 23:59 | disposition home or self-care (01) | LOC: LAB 12:16 | PROVIDERS: PCP Obstetrics & Gynecology; Visit Provider Obstetrics & Gynecology | DX: Z34.90 Encounter for supervision of normal pregnancy, unspecified, unspecified trimester (principal) ==

== ENCOUNTER 2024-03-14 21:39 | Inpatient (IN) | payer BC, SELFPAY ==
[2024-03-14] VITALS (24 sets, daily range): BP systolic 135–177; BP diastolic 81–112; PULSE 85–116; RESP 18; TEMP 37.5; O2SAT 98; BMI 32.3
[2024-03-14 21:02] LABS: Microscopic, Urine URINE MICROSCOPIC (MICROSCOPIC)
[2024-03-14 21:09] LABS: Appearance,Urine CLEAR (Clear); Blood, Urine Negative (Negative); Glucose,Urine (UA) Negative (Negative); Ketones,Urine Negative (Negative); Leukocyte Esterase,Urine Negative (Negative); Nitrate,Urine Negative (Negative); Protein,Urine Negative (Negative)
[2024-03-14 21:28] LABS: Barbiturates Screen,Urine Negative ng/ml (<200)
[2024-03-14 21:29] LABS: Amphetamine/Metha Screen,Urine Negative ng/ml (<1000); Benzodiazepines Screen,Urine Negative ng/ml (<200)
[2024-03-14 21:30] LABS: Bilirubin,Urine 1+ (Negative); Methadone Screen,Urine Negative ng/ml (<300)
[2024-03-14 21:31] LABS: Cannabinoid Screen,Urine Negative ng/ml (<50); Cocaine Screen,Urine Negative ng/ml (<300); Color,Urine Amber (Yellow)
[2024-03-14 21:32] LABS: Opiate Screen,Urine Negative ng/ml (<300)
[2024-03-14 21:32] LABS: Fetal Membrane Rupture (Rapid) Positive (Negative)
[2024-03-14 21:33] LABS: Phencyclidine Screen,Urine Negative ng/ml (<25)
[2024-03-14 21:38] LABS: Bacteria,Urine Trace /lpf; Mucus,Urine 1+ /lpf; RBC,Urine Occasional #/hpf (0-3); Squamous Epithelial Cell,Urine Occasional #/hpf (0-5); WBC,Urine Occasional #/hpf (0-3)
[2024-03-14 21:55] LABS: Microalbumin/Creatinine Ratio 6.5
[2024-03-14 22:09] LABS: Basophils % 0.2 % (0.1-2.0); Eosinophils # 0.1 K/mm3 (0.0-0.4); Eosinophils % 0.7 % (0.1-12.0); Hematocrit 32.3 % (37.0-47.0); Hemoglobin 11.2 g/dL (12.2-16.2); Lymphocytes % 15.3 % (10-50); Mean Corpuscular HGB Conc 34.7 g/dL (31.8-35.4); Mean Corpuscular Hemoglobin 29.7 pg (27.0-31.2); Mean Corpuscular Volume 85.6 fl (81-99); Mean Platelet Volume 9.6 fl (7.4-10.4); Monocytes # 0.5 K/mm3 (0.1-1.0); Monocytes % 3.9 % (1.7-9.3); Neutrophils # 10.7 K/mm3 (1.8-7.8); Neutrophils % 79.9 % (37.0-80.0); Platelet Count 266 K/mm3 (142-424); Red Blood Count 3.78 M/mm3 (4.20-5.40); Red Cell Distribution Width 14.2 % (11.5-17.5); White Blood Count 13.4 K/mm3 (4.8-10.8)
[2024-03-14] MEDS: MAGNESIUM SULFATE IN WATER 4 GM/50 ML PIGGYBACK IV (22:14)
[2024-03-14 22:18] LABS: Creatinine,Urine Random 146 mg/dL (Not Estab.)
[2024-03-14] MEDS: LACTATED RINGERS 1000ML 1,000 ML 125 ML IV (22:18)
[2024-03-14] MEDS: LABETALOL 5MG/ML 20ML MDV 20 MG IV (22:19)
[2024-03-14 22:21] LABS: Alanine Aminotransferase 52 U/L (12-78); Albumin Level 3.3 g/dl (3.5-5.0); Albumin/Globulin Ratio 1.1 (1.1-1.8); Alkaline Phosphatase 220 U/L (38-126); Anion Gap 13.6 mEq/L (5-15); Aspartate Amino Transferase 34 U/L (14-36); Bilirubin,Total 0.8 mg/dl (0.2-1.3); Blood Urea Nitrogen 6 mg/dl (7-17); Calcium 9.1 mg/dl (8.4-10.2); Carbon Dioxide 20 mmol/L (22.0-30.0); Chloride 105 mmol/L (98-107); Creatinine Clearance Estimated 160 mL/min (50-200); Estimated Glomerular Filt Rate 105 ml/min (>60); GFR (African American) 127 ML/MIN (>60); Globulin 3.1 g/dL (1.3-3.2); Glucose 93 mg/dl (74-100); Potassium 3.6 mmoL/L (3.5-5.1); Sodium 135 mmol/L (136-145); Total Protein,Serum 6.4 g/dl (6.3-8.2); Uric Acid 4.5 mg/dl (2.5-6.2)
[2024-03-14] MEDS: MAGNESIUM SULFATE IN WATER 20 GM/500 ML IV.SOLN IV (22:38)
--- NOTE | 2024-03-14 22:41 | P.HP_ITS ---
OB - H&P: HPI Antepartum History of Present Illness Chief complaint: Leakage of fluid History of present illness: Ms Musa Sandhu is a 24 yo at 38w4d who presents to [facility] L&D with complaint of leakage of fluid intermittently for the past 2 days. She states she had two episodes of leakage yesterday and one before she came to L&D today. Baby is very active. She denies contractions. She has had good care. complicated by anxiety and abnormal thyroid labs. She admits to headaches throughout for which she takes magnesium. Upon arrival to L&D BP was elevated, severe range. She admits headaches are unchanged but does report floaters in her vision intermittently for the past week. Denies RUQ pain. Amnisure positive. Unsure of day and time of rupture. GBS negative. SVE /-1. History of Present Criteria for establishing EDC:: LMP confirmed by 1st trimester US care: good care Ultrasounds: normal mid trimester US Labs Blood type: A (+) positive Rubella: immune RPR/VDRL: nonreactive GBS status: negative HBsAG: negative [facility] Disclaimer: The information contained in this section may have been updated after the patient was seen, as this information can be updated by other users. Medical History (Updated 03/14/24 @ 23:30 by Melly Bryant DO) PROM (premature rupture of membranes) Gestational hypertension 38 weeks gestation of Leukocytosis Low magnesium level Anxiety during , antepartum Chronic hypertension affecting Generalized anxiety disorder Surgical History [place] teeth extracted Family History Other No significant family history Social History Smoking Status: Former smoker second hand exposure: No alcohol intake: former counseling given: No substance use type: marijuana counseling given: No current occupational status: unemployed Travel in the last 8 weeks: None adopted: No caregiver/support person: No foster care: No household members: significant other housing: apartment lives independently: Yes marital status: single number of children: 0 education level: high school current occupation: at [employer] Recent Travel: No sexually active: Yes caffeine: Yes physical activity: none troy/protestant: None special troy needs: No working smoke detector in home: Yes fire extinguisher in home: No carbon monox detector in home: No firearms in home: No do you feel safe at home: Yes victim of physical abuse: No victim of emotional abuse: Yes victim of sexual abuse: No would you like helpful sources: No Review of Systems Review of Systems Review of systems:: pertinent systems reviewed and negative unless documented below Constitutional Constitutional: Reports headache(s) Eyes Eyes: Reports floaters ENT Ears, Nose, Mouth, and Throat: Reports headache(s) *Neurologic Neurologic: Reports headache(s) Meds Home Medications and Allergies Home Medications Medication Instructions Recorded Confirmed Type vit no.95-ferrous tab PO 08/14/23 03/10/24 History fumarate 28 mg-folic acid 800 mcg tablet () sertraline 50 mg tablet (Zoloft) 50 mg PO DAILY #30 tabs 12/09/23 03/10/24 Rx New Prescriptions to Start Prescriptions: Allergies Allergy/AdvReac Type Severity Reaction Status Date / Time No Known Allergies Allergy Verified 03/10/24 11:21 OB - H&P: Exam Physical Exam Vital signs: BP 171/112 H 03/14/24 22:19 Constitutional no acute distress and cooperative Routine HEENT Exam Head: Present normocephalic and atraumatic Eye: Absent conjunctivae pink ENT: Present mucous membranes moist Routine Neck Exam Present full ROM Routine Respiratory Exam Present CTA bilaterally and normal respiratory effort Routine Cardiovascular Exam Present RRR Routine Abdominal Exam Present soft (Gravid); Absent tenderness Routine Rectal Exam Patient deferred: visual exam Routine Exam External: Present normal urethra appearance; Absent erythema, tenderness, lesions, lacerations or vulvar erythema Routine Extremities Exam Present edema (trace non pitting lower extremity edema) and full ROM; Absent calf tenderness Routine Neurological Exam Present alert, moving all extremities and normal speech Routine Psychiatric Exam Present normal affect and cooperative Detailed Labor and Delivery Exam Dilation (cm): 4 Effacement (%): 80 Cervix position: mid station: -1 Consistency: soft Membranes: spontaneously ruptured (unknown date and time) Amniotic fluid: clear Baseline heart rate: 140 monitor accelerations: Present monitor decelerations: None extermination supervisor variability: Moderate (11-25) OB - Results Labs Labs: Short CBC 03/14/24 Range/Units 21:50 WBC 13.4 H (4.8-10.8) K/mm3 Hgb 11.2 L (12.2-16.2) g/dL Hct 32.3 L (37.0-47.0) % Plt Count 266 (142-424) K/mm3 BMP 03/14/24 21:50 Sodium 135 L Potassium 3.6 Chloride 105 Carbon Dioxide 20 L BUN 6 L Creatinine 0.70 Glucose 93 Calcium 9.1 Liver Function 03/14/24 Range/Units 21:50 Total Bilirubin 0.8 (0.2-1.3) mg/dl AST 34 (14-36) U/L ALT 52 (12-78) U/L Alkaline Phosphatase 220 H (38-126) U/L Albumin 3.3 L (3.5-5.0) g/dl Urine 03/14/24 Range/Units 20:50 Urine Color [place] (Yellow) Urine Appearance Clear (Clear) Urine pH 7.0 (5.0-8.5) Ur Specific [place] 1.020 (1.005-1.030) Urine Protein Negative (Negative) Urine Glucose (UA) Negative (Negative) OB - A/P Antepartum (1) 38 weeks gestation of : Status: Acute (2) Gestational hypertension: Status: Acute (3) PROM (premature rupture of membranes): Status: Acute (4) Anxiety during , antepartum: Status: Acute (5) Subclinical hypothyroidism: Status: Acute Additional Plan Planning to breastfeed?: Yes Additional Information:: Admit to [facility] L&D for GHTN and PROM. Amnisure positive NST category 1, reactive. Augment labor with Pitocin Labetalol 20 mg IV x 1 dose Mag sulfate 4 gm bolus then 2gm/hr maintenance Mag level 4 hours after bolus PIH labs GBS negative Unknown time of rupture. Monitor maternal temp and heart tones closely. If maternal fever or tachycardia present will start Ampicillin 2 gm q 6 hours and Gentamicin 5 mg/kg q 24 hours Close monitoring
[2024-03-14] MEDS: OXYTOCIN/RINGERS LACTATE 30 UNITS/500 ML BAG IV (22:57)
[2024-03-14 23:25] LABS: Activated Partial Thrombo Time 26.7 seconds (22.8-30.6); Prothrombin Time 9.8 seconds (10.1-12.5)
[2024-03-14 23:26] LABS: Fibrinogen 453 mg/dL (229.9-363.5); INR 0.86 (0.9-1.1)
[2024-03-15] VITALS (34 sets, daily range): BP systolic 118–169; BP diastolic 58–106; PULSE 78–110; RESP 16–18; TEMP 36.3–36.9; O2SAT 98
[2024-03-15] MEDS: ALUMINUM/MAGNESIUM/SIMETHICONE 30ML UDC 30 ML PO (01:11)
--- NOTE | 2024-03-15 06:11 | P.PNANES_ITS ---
[facility] Disclaimer: The information contained in this section may have been updated after the patient was seen, as this information can be updated by other users. Medical History PROM (premature rupture of membranes) Gestational hypertension 38 weeks gestation of Leukocytosis Low magnesium level Anxiety during , antepartum Chronic hypertension affecting Generalized anxiety disorder Surgical History [place] teeth extracted Family History Other No significant family history Social History Smoking Status: Former smoker second hand exposure: No alcohol intake: former counseling given: No substance use type: marijuana counseling given: No current occupational status: employed Travel in the last 8 weeks: None adopted: No caregiver/support person: No foster care: No household members: significant other housing: apartment lives independently: Yes marital status: single number of children: 0 education level: high school current occupation: at [employer] Recent Travel: No sexually active: Yes caffeine: Yes physical activity: none troy/uatsdin: None special troy needs: No working smoke detector in home: Yes fire extinguisher in home: No carbon monox detector in home: No firearms in home: No do you feel safe at home: Yes victim of physical abuse: No victim of emotional abuse: Yes victim of sexual abuse: No would you like helpful sources: No [facility] Anesthesia Checklist Patient Identification Patient Identification: Arm Band and Verbal (Name & ) Structural Data Admitted From: Inpatient Planned Operative Procedure/s: Labor epidural Consent for Planned Operative Procedure(s) Verified: Yes Verified Documents: History and Physical NPO Status Verified Time NPO: 00:00 Chart Verification Results Verified: CBC and BMP Additional verifications Patient : Yes Anesthesia Reactions: No Airway Assessment Mallampati Score:: Class II C-Spine Mobility Assessed: Yes TMJ Mobility Assessed: Yes Dentition: Good Dentition Neurological Assessment Level of Consciousness: Awake Hx Seizures: No Numbness or tingling in extremities: No Anesthesia Plan Anesthesia Risk discussed: Yes Anesthesia Plan: Verified ASA Class: III Anesthesia Type: Epidural
[2024-03-15] MEDS: LACTATED RINGERS 1000ML 1,000 ML 125 ML IV ×2 (06:16→16:46)
[2024-03-15] MEDS: LACTATED RINGERS 1000ML 1,000 ML 500 ML IV (06:16)
[2024-03-15 08:10] LABS: Magnesium 5.4 mg/dl (1.6-2.3)
[2024-03-15] MEDS: MAGNESIUM SULFATE IN WATER 20 GM/500 ML IV.SOLN IV ×2 (09:01→19:11)
--- NOTE | 2024-03-15 09:04 | P.CONPHA_ITS ---
Pharmacy Intervention Comments: MEDICATION RECONCILIATION COMPLETED ON PATIENT USING EXTERNAL FILL HISTORY FROM PHARMACY AND LIST FROM SQL SERVER BI DEVELOPER OFFICE. -JUAN DE LA OD
--- NOTE | 2024-03-15 09:04 | HMH.PHAINT1 ---
Pharmacy Intervention Comments: MEDICATION RECONCILIATION COMPLETED ON PATIENT USING EXTERNAL FILL HISTORY FROM PHARMACY AND LIST FROM VEHICLE REFINISHER OFFICE. -JUAN DE LA OD
--- NOTE | 2024-03-15 09:47 | EXP.LABOR.NO ---
Labor Note Subjective: Date: 03/15/24 Time: 09:47 Objective: NST:: Reactive Contractions:: every 2-3 minutes Cervical Dilation:: 9-10 Effacement:: 100% Station: +3 Membranes: ruptured Fetus: Monitoring?: Yes monitoring type:: External Assessment: Labor progressing?: Yes Cephalopelvic disproportion?: No Plan: Anesthesia for epidural?: Yes Continue to labor down?: Yes Plan for ?: No Continue to monitor?: Yes Start pushing?: Yes Continue pushing?: Yes Comment:: She is started pushing. She is doing very well. We will expect a vaginal delivery.
[2024-03-15] MEDS: OXYTOCIN/RINGERS LACTATE 30 UNITS/500 ML BAG 40 UNITS IV (10:07)
[2024-03-15 10:23] LABS: Cord Blood PH 7.32 (7.35-7.45)
--- NOTE | 2024-03-15 10:24 | EXP.DN ---
Delivery Note Delivery Date:: 03/15/24 Delivery Time:: 10:02 Anesthesia Type: Epidural Was labor medically induced?: No Induction method: none Gestational age (weeks): 38 Infant delivered prior to 39 weeks?: Yes Justification for early elective delivery:: Active Labor Gender: Male at 1 minute: 7 at 5 minutes: 7 LAC or MLE?: LAC Delivery Procedure:: She is a 24-year-old 1 para 0 who is 38+ weeks gestational age. She is been followed with gestational hypertension. She was due to be induced in a couple of days. She came in with rupture membranes for possibly 2 days. AmniSure was positive. She was having contractions and was found to be 4 cm dilated. As result of that we elected to deliver her. She received IV oxytocin and under labor epidural progressed to full dilation. She began pushing and was having prolonged decelerations. As result of that I elected to place a vacuum. She was station +4 with the head at the perineum. However after a number of pushes she really had not progressed much. The vacuum was applied, the bladder was empty and using gentle traction I was able to easily deliver the head. There were no pop offs. On deliver the head, the anterior shoulder then delivered followed by the rest the infant's body atraumatically. There was terminal meconium. The baby was stimulated and cried spontaneously. The oropharynx and nasopharynx were bulb suction. The cord was then doubly clamped and cut. The baby was then placed on the mother's abdomen for further care. The nurses assigned Apgars of 7 at 1 minute and 7 at 5 minutes. She was group B streptococcus negative but did receive IV antibiotics while in labor since it was not clear how long her membranes have been ruptured. She received IV oxytocin using gentle traction on the cord and countertraction the fundus I was able to easily deliver the placenta intact. It had a normal three-vessel cord. She had a small posterior vaginal laceration that was repaired with a single [id number] 3-0 Vicryl Rapide suture. Estimated blood loss was approximately 150 cc. Laceration:: vaginal Placental Delivery Description: Spontaneous
[2024-03-15] MEDS: LABETALOL 5MG/ML 20ML MDV 20 MG IV (11:48)
[2024-03-15] MEDS: ACETAMINOPHEN 500MG TAB 1000 MG PO ×3 (12:11→22:06)
[2024-03-15] MEDS: LABETALOL 100MG TABLET 200 MG PO ×2 (12:11→20:52)
[2024-03-15] MEDS: PRENATAL MULTIVITAMIN W/IRON 1 EACH PO (18:01)
[2024-03-16] VITALS (13 sets, daily range): BP systolic 103–138; BP diastolic 59–94; PULSE 84–96; RESP 14–16; TEMP 36.6–36.7; O2SAT 98–99
[2024-03-16] MEDS: LACTATED RINGERS 1000ML 1,000 ML 125 ML IV (02:31)
[2024-03-16] MEDS: ACETAMINOPHEN 500MG TAB 1000 MG PO ×3 (04:18→21:01)
[2024-03-16] MEDS: IBUPROFEN 400 MG TABLET 800 MG PO ×3 (04:18→21:01)
[2024-03-16] MEDS: MAGNESIUM SULFATE IN WATER 20 GM/500 ML IV.SOLN IV (05:12)
[2024-03-16 07:18] LABS: Hematocrit 28.3 % (37.0-47.0); Hemoglobin 9.5 g/dL (12.2-16.2)
--- NOTE | 2024-03-16 09:29 | EXP.ACUTE.PN ---
Subjective *Date: 03/16/24 *Time: 09:29 Interval history: She is 1 day post vaginal delivery. She continues with magnesium sulfate at 2 g an hour. We will keep this going for 24 hours total. Her 24 hours is up at 10 AM this morning. She does feel somewhat lethargic as a result of the magnesium sulfate. Otherwise she is doing well. She is breast-feeding. Her lochia is normal. Her blood pressures are normal. She is taking 200 mg twice daily of labetalol. Medical Exam Vital signs and Labs for Last 24 Hours: Vital Signs Temp Pulse Resp BP BP 03/16/24 07:47 95 H 14 114/59 L 03/16/24 06:47 92 H 131/74 03/16/24 05:47 88 114/62 03/16/24 04:47 88 114/62 03/16/24 03:47 90 128/82 03/16/24 02:47 96 H 135/88 03/16/24 01:46 95 H 103/65 L 03/16/24 00:06 84 121/69 03/15/24 23:04 100 H 133/77 03/15/24 22:04 94 H 130/73 03/15/24 21:04 100 H 126/75 03/15/24 21:03 100 H 126/75 03/15/24 20:04 98.4 F 94 H 16 120/68 03/15/24 20:03 78 120/68 03/15/24 19:03 96 H 127/74 03/15/24 19:03 96 H 124/74 03/15/24 19:03 96 H 16 127/74 03/15/24 18:03 104 H 16 135/77 03/15/24 17:03 99 H 16 138/105 H 03/15/24 16:03 97.9 F 92 H 16 118/66 03/15/24 15:03 98 H 16 124/74 03/15/24 14:03 96 H 18 128/65 03/15/24 13:02 93 H 16 142/85 H 03/15/24 12:34 98.0 F 90 16 133/80 03/15/24 12:05 133/86 03/15/24 11:48 158/104 H 03/15/24 11:34 96 H 16 146/101 H 03/15/24 10:34 91 H 16 140/85 03/15/24 09:35 97 H 16 145/93 H Intake and Output 03/15/24 03/16/24 03/16/24 19:59 03:59 11:59 Intake Total 3557 / 7120 3563 / 7120 Output Total 3192 / 5312 1315 / 5312 805 / 5312 Balance 365 / 1808 -1315 / 1808 2758 / 1808 Intake: Intake, Oral Amount 1180 / 1180 Intake, Total IV Amount 3557 / 5940 2383 / 5940 Lactated Ringers 1000ML 1,000 2135 / 3877 1742 / 3877 ml @ 125 mls/hr IV .Q8H [facility] Rx# :[id number] Magnesium Sulfate in Water 20 997 / 1638 641 / 1638 gm In 500 ml @ 2 GM/HR 50 mls/ hr IV .Q10H [facility] Rx#:[id number] Oxytocin/Ringers Lactate 30 425 / 425 units In 500 ml @ 40 mls/hr IV .[id number] ONE Rx#:[id number] Output: Output, Urine Amount 100 / 1890 1315 / 1890 475 / 1890 Output, Urine Amount (Catheter) 3092 / 3422 330 / 3422 Iwnters 3092 / 3422 330 / 3422 Laboratory Results - last 24 hr 03/15/24 10:04: Cord ABG pH 7.32 L 03/16/24 06:46: Hgb 9.5 L, Hct 28.3 L I & O for Labs for Last 24 Hours: Intake & Output 03/13/24 03/14/24 03/15/24 03/16/24 11:59 11:59 11:59 11:59 Intake Total 350 / 350 7120 / 7120 Output Total 4490 / 4490 5312 / 5312 Balance -4140 / -4140 1808 / 1808 Weight 177 lb 0.005 oz Head: Present atraumatic Neck: Present normal inspection Respiratory: Present normal respiratory effort; Absent accessory muscle use Rectal (female): Present deferred (female): Present deferred Assessment and Plan *Assessment and plan (1) Gestational hypertension: Status: Acute Qualifiers: Trimester: third trimester Qualified Code(s): O13.3 - Gestational [-induced] hypertension without significant proteinuria, third trimester Category: Medical Code(s): O13.9 - Gestational [-induced] hypertension without significant proteinuria, unspecified trimester (2) Normal delivery at term: Status: Acute Category: Medical Code(s): O80 - Encounter for full-term uncomplicated delivery Plan She is doing well this morning. We will plan to stop her magnesium sulfate this morning. She is breast-feeding. Her blood pressures are stable. She will continue with labetalol 200 mg twice daily. She will likely be sent home tomorrow.
[2024-03-16] MEDS: LABETALOL 100MG TABLET 200 MG PO ×2 (10:17→21:01)
[2024-03-16 10:50] LABS: Magnesium 5.7 mg/dl (1.6-2.3)
[2024-03-16] MEDS: IRON SUCROSE COMPLEX 200 MG in 0.9 % SODIUM CHLORIDE 100 ML 220 MG IV (11:50)
[2024-03-17 08:00] VITALS: BP 126/69; PULSE 92; RESP 18; TEMP 37.1; O2SAT 98
--- NOTE | 2024-03-17 08:23 | EXP.DC.SUM ---
General Admission date:: 03/14/24 Discharge date: 03/17/24 HPI HPI HPI: Ms Musa Sandhu is a 24 yo at 38w4d who presents to [facility] L&D with complaint of leakage of fluid intermittently for the past 2 days. She states she had two episodes of leakage yesterday and one before she came to L&D today. Baby is very active. She denies contractions. She has had good care. complicated by anxiety and abnormal thyroid labs. She admits to headaches throughout for which she takes magnesium. Upon arrival to L&D BP was elevated, severe range. She admits headaches are unchanged but does report floaters in her vision intermittently for the past week. Denies RUQ pain. Amnisure positive. Unsure of day and time of rupture. GBS negative. SVE /-1. History of Present Criteria for establishing EDC:: LMP confirmed by 1st trimester US care: good care Ultrasounds: normal mid trimester US Labs Blood type: A (+) positive Rubella: immune RPR/VDRL: nonreactive GBS status: negative HBsAG: negative Hospital Course Hospital Course Hospital Course: Musa Sandhu is a 24-year-old G1, P1 day #2 from a vacuum-assisted vaginal delivery. Her was uncomplicated but upon arrival she had severe range blood pressures, was diagnosed with preeclampsia, and started on magnesium. She received 24 hours of eclampsia prophylaxis. She delivered a live viable male infant with Apgars of 8 and 8. weight was 7 pounds 0oz. Patient is ambulating, voiding, and tolerating p.o. without difficulty, dysuria, or nausea and vomiting. Routine discharge instructions reviewed with patient in detail and she was understanding. Send any headaches, vision changes, right upper quadrant pain. She previously was having vision changes, magnesium was have all completely resolved. She did receive 1 dose of IV iron on day #1. Her hemoglobin dropped from 11.2-9.5. Otherwise her labs have been stable she was started on labetalol 200 mg twice daily and her blood pressure has been well-controlled throughout her course. She will be discharged home on this medicine as well. She will follow-up in 1 week for a routine visit. And blood pressure check Exam Data for Last 24 hours Vital signs and Labs for Last 24 Hours: Temp Pulse Resp BP Pulse Ox O2 Del Method 97.9 F 95 H 16 133/65 99 Room Air 03/16/24 16:35 03/16/24 16:35 03/16/24 16:35 03/16/24 16:35 03/16/24 16:35 03/16/24 16:35 Laboratory Results - last 24 hr 03/16/24 06:46: Magnesium 5.7 H I & O for Last 24 hours: Intake & Output 03/14/24 03/15/24 03/16/24 03/17/24 23:59 23:59 23:59 23:59 Intake Total 3907 / 3907 3982 / 3982 Output Total 200 / 200 8062 / 8062 2501 / 2501 Balance -200 / -200 -4155 / -4155 1481 / 1481 Weight 177 lb 0.005 oz Narrative: General: patient is alert oriented in no acute distress and responds appropriately to questions. Appears to be in minimal pain. Sitting up in the chair and doing well HEENT: NCAT, EOMI, moist mucous membranes, neck supple with full ROM Cardiovascular: RRR +S1/S2, no murmurs or rubs Pulmonary: Clear to auscultation bilaterally, nonlabored breathing, symmetric chest rise Abdominal: Fundus below the umbilicus, firm, and tenderness appropriate for the period. Extremities: trace edema, no tenderness or cyanosis noted Skin: Normal turgor, intact, warm. Negative for erythema, pallor, petechia, or lesions Neurologic: Negative for sensory or motor deficit Psychiatric: Normal affect, normal thought process, good judgment and insight, no depression or anxious mood appreciated. Results Data Completed and Pending Labs on day of discharge: Labs from last 24 hours 03/16/24 06:46 Magnesium 5.7 H DS: Diagnosis Discharge Diagnosis (1) Gestational hypertension: Status: Acute Code(s): O13.9 - Gestational [-induced] hypertension without significant proteinuria, unspecified trimester Qualifiers: Trimester: third trimester Qualified Code(s): O13.3 - Gestational [-induced] hypertension without significant proteinuria, third trimester (2) Normal delivery at term: Status: Acute Code(s): O80 - Encounter for full-term uncomplicated delivery Meds Home Medications and Allergies Home Medications Medication Instructions Recorded Confirmed Type vit no.95-ferrous 1 tab PO DAILY 08/14/23 03/15/24 History fumarate 28 mg-folic acid 800 mcg tablet () magnesium oxide 200 mg PO DAILY 03/15/24 03/15/24 History sertraline 50 mg tablet (Zoloft) 50 mg PO DAILY 03/15/24 03/15/24 History acetaminophen 500 mg tablet 500 mg PO Q6H PRN fever #30 tabs 03/17/24 Rx ferrous sulfate 325 mg (65 mg 325 mg PO DAILY #30 tabs 03/17/24 Rx iron) tablet,delayed release ibuprofen 800 mg tablet 800 mg PO Q8H PRN pain #60 tabs 03/17/24 Rx labetalol 100 mg tablet 200 mg (2 x 100 mg) PO BID #60 tabs 03/17/24 Rx sennosides 8.6 mg tablet (Senna 8.6 mg PO BIDP PRN Constipation 03/17/24 Rx Lax) #60 tabs New Prescriptions to Start Prescriptions: acetaminophen Mariana Urbina ferrous sulfate Mariana Urbina ibuprofen Mariana rUbina labetalol Mariana Urbina sennosides [Senna Lax] Mariana Urbina Allergies Allergy/AdvReac Type Severity Reaction Status Date / Time No Known Allergies Allergy Verified 03/10/24 11:21 Discharge Plan Disposition Patient Disposition: Home, Self-Care Discharge Order Discharge Orders: Discharge Order (Routine); Ordered 03/17/24 Ordered By: Mariana Urbina Follow up Plan Follow up with: Mariana Urbina DO [Staff Physician] - 1 week Prescriptions/Medication Reconciliation: New labetalol 100 mg Tablet 200 mg PO BID Qty: 60 0RF sennosides [Senna Lax] 8.6 mg Tablet 8.6 mg PO BIDP PRN (Reason: Constipation) Qty: 60 2RF ibuprofen 800 mg tablet 800 mg PO Q8H PRN (Reason: pain) Qty: 60 2RF acetaminophen 500 mg tablet 500 mg PO Q6H PRN (Reason: fever) Qty: 30 3RF ferrous sulfate 325 mg (65 mg iron) tablet,delayed release (DR/EC) 325 mg PO DAILY Qty: 30 3RF Continued PNV cmb#95-ferrous fumarate-FA [] 28 mg iron- 800 mcg tablet 1 tab PO DAILY magnesium oxide 200 mg magnesium Tablet 200 mg PO DAILY sertraline [Zoloft] 50 mg tablet 50 mg PO DAILY Problem Reconciliation Problems Reviewed?: Yes Patient Discharge Instructions ACTIVITY: Continue current activity DIET: regular diet Additional Instructions: Congratulations on the delivery of your sweet baby boy. It is my privilege to be your doctor and I am so thankful I could be a part of your special day. Discharge: -Take 800 mg Ibuprofen every 8 hours as needed for pain. You can also take 500-1000 mg of Tylenol in between doses, every 6-8 hours. -Colace can be taken 1-2 times per day as you need to soften your stool. Make sure to drink at least 8 cups of water per day. -Iron supplements can make you constipated. You can take iron tablets every other day if constipation is too bad. -Nothing in the vagina for 6 weeks - no sex, douching, tampons. No tub baths -Do not lift greater than 15 pounds for 6 weeks, this is the equivalent of 2 gallons of milk. -Reasons to return to L&D or call On-Call doctor - fever (greater than 100.4) - heavy vaginal bleeding (soaking through 1 pad in less than 2 hours or passing clots that are egg sized) - vaginal discharge (malodorous and/or purulent) - severe headaches, leg tenderness/edema, or any other symptoms that warrant immediate medical attention. depression/blues - Normal to feel anxious/overwhelmed for first 2 weeks - Talk to your doctor if: anxiety lasts over 2 weeks, trouble bonding with baby, withdrawing from other family members, thoughts of harming yourself or others Blood pressure and preeclampsia instructions -Please continue labetalol 200 mg twice daily at discharge 1. Please take your blood pressure twice daily. 2. Please call if greater than 2 values are higher than: 150 systolic (the top number) or 100 diastolic (the bottom number). 3. Please go to the emergency room or labor and delivery triage if any value is higher than: 160 systolic (the top number) or 110 diastolic (the bottom number). 4. Please call if unrelenting headache (does not go away with rest or Tylenol or ibuprofen), changes in vision (spots, floaters, flashes of light), chest pain, shortness of breath, or right upper quadrant (liver) abdominal pain. Mariana Urbina DO [facility] [phone] *Nothing in the Vagina for 6 weeks* *No strenuous activity* *No heavy lifting* *No tub baths until okay's by MD* Patient Instructions: Depression, Hemorrhage, DI for Labor and Delivery, Vaginal , DI for Pre-eclampsia, [facility] Post Discharge Instructions Providers Primary Care Provider: Provider,Referral Admit Provider: Melly Bryant Attending Provider: Melly Bryant
[2024-03-17] MEDS: LABETALOL 100MG TABLET 200 MG PO (09:21)
== END 2024-03-17 11:37 | disposition home or self-care (01) | DRG 807 ==
LOC: OBOUT 21:39 → OB 21:39
PROVIDERS: Nurse Practitioner Obstetrics & Gynecology; Obstetrics & Gynecology; Admitting Provider Obstetrics & Gynecology; Visit Provider Obstetrics & Gynecology
DX: O13.4 Gestational [pregnancy-induced] hypertension without significant proteinuria, complicating childbirth (principal); Z37.0 Single live birth; Z3A.38 38 weeks gestation of pregnancy; O70.0 First degree perineal laceration during delivery
CPT/HCPCS: 59409; 36415; 59025; 80053; 80307; 81001; 82043; 82570; 82800; 83735; 84112; 84156; 84550; 85014; 85018; 85025; 85384; 85610; 85730; 86850; 94761; C1758; G0283; J1756; J3010; J7120